=== PATIENT | female | born 1930 | race African-American/Black ===

== ENCOUNTER → 2016-11-13 | Outpatient (CLI) | payer MEDICARE, OTHER ==
--- NOTE | 2016-11-13 14:58 | RAD ---
Right knee, 3 views, 11/13/2016: History: Knee pain AP standing views of both knees as well as lateral and tangential patellar views of the right knee were obtained. There is moderate patchy bony demineralization. There is mild narrowing of the medial compartment of the right knee joint. Bilateral chondrocalcinosis is present. There is mild marginal spurring at the right knee joint and moderate spurring at the patellofemoral articulation. No acute fracture or dislocation is identified. There appears to be small joint effusion. IMPRESSION: 1. Demineralization. 2. Mild to moderate degenerative change at the right knee joint with chondrocalcinosis. 3. Right knee joint effusion
== END | disposition home or self-care (01) ==
LOC: DXRADRC 14:36
PROVIDERS: ATTEND Orthopaedic Surgery Sports Medicine
DX: M17.11 Unilateral primary osteoarthritis, right knee (principal); M11.261 Other chondrocalcinosis, right knee; M81.8 Other osteoporosis without current pathological fracture
CPT/HCPCS: 73562

== ENCOUNTER 2018-09-20 10:50 | Emergency (ER) | payer MEDICARE, OTHER ==
[~2018-09-20] VITALS: Ht 152.4 cm; Wt 72.6 kg
--- NOTE | 2018-09-20 11:15 | PHYS DOC ---
Adult General Chief Complaint Chief Complaint: LOWER EXT PAIN HPI HPI Patient is a 88 year old female who presents with complaining of injury to right lower extremity. Patient states she had an accidental fall from 6 stairs at home last night without loss of consciousness or head injury. Patient complaining of pain in right ankle that getting worse with bearing weight and rated her pain 4/10 without activity. Patient also complaining of right calf pain since this morning without injury to her. Patient is other injuries or focal neuro deficit. Review of Systems Review of Systems Constitutional: Denies fever or chills [] Eyes: Denies change in visual acuity, redness, or eye pain [] HENT: Denies nasal congestion or sore throat [] Respiratory: Denies cough or shortness of breath [] Cardiovascular: No additional information not addressed in HPI [] GI: Denies abdominal pain, nausea, vomiting, bloody stools or diarrhea [] : Denies dysuria or hematuria [] Musculoskeletal: Denies back pain, reports joint pain [] Integument: Denies rash or skin lesions [] Neurologic: Denies headache, focal weakness or sensory changes [] Endocrine: Denies polyuria or polydipsia [] All other systems were reviewed and found to be within normal limits, except as documented in this note. Physical Exam Physical Exam Constitutional: Well developed, well nourished, mild distress, non-toxic appearance. [] HENT: Normocephalic, atraumatic Eyes: PERRLA, EOMI, conjunctiva normal, no discharge. [] Neck: Normal range of motion, no tenderness, supple, no stridor. [] Cardiovascular:Heart rate regular rhythm, no murmur [] Lungs & Thorax: Bilateral breath sounds clear to auscultation [] Extremities: Right lower extremity with edema and ankles with painful range of motion, no focal neuro deficit or tenderness, right calf without tenderness or edema or positive Homans sign Neurologic: Alert and oriented X 3, normal motor function, normal sensory function, no focal deficits noted. [] Psychologic: Affect normal, judgement normal, mood normal. [] EKG EKG [] Radiology/Procedures Radiology/Procedures [address] [address] IMAGING REPORT Signed PATIENT: MIRIAM SAUCEDO ACCOUNT: [id number] : 1930 LOCATION: ER AGE: 88 SEX: F EXAM STATUS: REG ER ORD. PHYSICIAN: CHARLIE SOSA MD REASON: fall PROCEDURE: ANKLE RIGHT 3V Right ankle, 3 views, 09/20/2018: HISTORY: Fall, pain There is moderate diffuse soft tissue swelling. No acute fracture or dislocation is identified. Arterial calcifications are present. IMPRESSION: No acute bony abnormality is detected. Electronically signed by: Carlo Noel MD (09/20/2018 12:34 PM) [facility] DICTATED AND SIGNED BY: CARLO NOEL MD DATE: 09/20/18 1231 CC: CHARLIE SOSA MD; KAHLIL JEAN MD ~ [place] [address] IMAGING REPORT Signed PATIENT: IMRIAM SAUCEDO ACCOUNT: [id number] : 1930 LOCATION: ER AGE: 88 SEX: F EXAM STATUS: PRE ER ORD. PHYSICIAN: CHARLIE SOSA MD REASON: right calf pain since this morning PROCEDURE: VENOUS LOWER EXTREMITY RIGHT EXAM: Right lower extremity venous Doppler sonogram. HISTORY: Pain and swelling. TECHNIQUE: Huggins scale and color Doppler sonographic evaluation of the right lower extremity veins with spectral waveform analysis was performed. FINDINGS: There is normal color flow, normal compressibility and there are normal spectral waveforms in the common femoral, superficial femoral, popliteal, posterior tibial and greater saphenous veins. IMPRESSION: No Doppler evidence of lower extremity deep venous thrombosis. Electronically signed by: Ivelisse Thomas MD (09/20/2018 11:53 AM) [place] [id number] DICTATED AND SIGNED BY: IVELISSE THOMAS MD DATE: 09/20/18 115 CC: CHARLIE SOSA MD; KAHLIL JEAN MD ~ Course & Med Decision Making Course & Med Decision Making Pertinent Imaging studies reviewed. (See chart for details) Evaluation of patient in ER showed 88-year-old patient with complaining of a fall last night and pain in right ankle and right foot and right calf. Patient had moderate edema of right foot and ankle without focal tenderness or neuro deficit. Extensive did not show fracture. Patient also complaining of right calf pain with negative venous Doppler for DVT. Patient didn't want to have pain medication in ER and treated with Xanax and felt better. Patient doesn't want to have pain medication for home. Ankle gel splint was applied and patient ambulated well. Patient was advised to continue Tylenol and apply ice at [place] follow-up with her primary care physician. Dragon Disclaimer Dragon Disclaimer This electronic medical record was generated, in whole or in part, using a voice recognition dictation system. Departure Departure: Impression: Primary Impression: Right ankle sprain Additional Impressions: Fall down stairs Right calf pain Disposition: HOME, SELF-CARE Condition: IMPROVED Referrals: KAHLIL JEAN MD (PCP) Patient Instructions: Ankle Sprain Additional Instructions: Apply ice on the affected area Follow-up with your primary care physician in 2-3 days Return to ER if not getting better Scripts Cyclobenzaprine Hcl (CYCLOBENZAPRINE HCL) 5 Mg Tablet 1 TAB PO TID for muscle pain, #20 TAB Prov: CHARLIE SOSA MD 09/20/18 Problem Qualifiers Primary Impression: Right ankle sprain Encounter type: initial encounter Involved ligament of ankle: unspecified ligament Qualified Codes: S93.401A - Sprain of unspecified ligament of right ankle, initial encounter Additional Impressions: Fall down stairs Encounter type: initial encounter Qualified Codes: W10.8XXA - Fall (on) ( from) other stairs and steps, initial encounter CHARLIE SOSA MD Sep 20, 2018 11:15
--- NOTE | 2018-09-20 11:57 | RAD ---
EXAM: Right lower extremity venous Doppler sonogram. HISTORY: Pain and swelling. TECHNIQUE: Huggins scale and color Doppler sonographic evaluation of the right lower extremity veins with spectral waveform analysis was performed. FINDINGS: There is normal color flow, normal compressibility and there are normal spectral waveforms in the common femoral, superficial femoral, popliteal, posterior tibial and greater saphenous veins. IMPRESSION: No Doppler evidence of lower extremity deep venous thrombosis. Electronically signed by: Ivelisse Mcgee MD (09/20/2018 11:53 AM) [place] [id number]
[2018-09-20] MEDS ORDERED: CYCLOBENZAPRINE 10 MG TABLET. PO ONE (12:30)
--- NOTE | 2018-09-20 12:37 | RAD ---
Right ankle, 3 views, 09/20/2018: HISTORY: Fall, pain There is moderate diffuse soft tissue swelling. No acute fracture or dislocation is identified. Arterial calcifications are present. IMPRESSION: No acute bony abnormality is detected. Electronically signed by: Carlo Noel MD (09/20/2018 12:34 PM) [facility]
[2018-09-20] MEDS ORDERED: CYCL5TAB PO (12:52)
[2018-09-20 13:00] VITALS: BP 137/69
== END 2018-09-20 13:10 | disposition home or self-care (01) ==
LOC: ER 10:50
DX: S93.401A Sprain of unspecified ligament of right ankle, initial encounter (principal); M79.661 Pain in right lower leg; W10.8XXA Fall (on) (from) other stairs and steps, initial encounter; Y93.89 Activity, other specified; Y92.89 Other specified places as the place of occurrence of the external cause; Y99.8 Other external cause status
CPT/HCPCS: 29125; 73610; 93971; 99284-25

== ENCOUNTER 2018-10-21 23:10 | Emergency (ER) | payer MEDICARE, OTHER ==
[~2018-10-21] VITALS: Ht 152.4 cm; Wt 72.6 kg
[2018-10-21 23:10] VITALS: BP 145/57
[~2018-10-21 23:10] MED LIST: CYCL5TAB PO
--- NOTE | 2018-10-21 23:24 | PHYS DOC ---
Past History Past Medical History: Diabetes, Renal Failure Past Surgical History: Hysterectomy Alcohol Use: None Drug Use: None Adult General Chief Complaint Chief Complaint: FOOT INJURY PAIN [facility] HPI Patient is an 88-year-old female who presents with complaint of pain to her left small toe after stepping in this evening. Patient states that she put a bunch of Band-Aids on it thinking that it would help with the pain but states that it has not. Patient states that she doesn't know if it might be broken or not. She denies any other injuries. Review of Systems Review of Systems Constitutional: Denies fever or chills [] Respiratory: Denies cough or shortness of breath [] Cardiovascular: No additional information not addressed in HPI [] Musculoskeletal: Positive left small toe pain [] Integument: Denies rash or skin lesions [] Allergies Allergies Allergies Coded Allergies Type Severity Reaction Last Updated Verified No Known Drug Allergies 09/20/18 No Physical Exam Physical Exam Constitutional: Well developed, well nourished, no acute distress, non-toxic appearance. [] Cardiovascular:Heart rate regular rhythm, no murmur [] Lungs & Thorax: Bilateral breath sounds clear to auscultation [] Extremities: Evaluation of the left small toe demonstrates tenderness to palpation around the metatarsophalangeal joint. [] EKG EKG [] Radiology/Procedures Radiology/Procedures [] Course & Med Decision Making Course & Med Decision Making Pertinent Labs and Imaging studies reviewed. (See chart for details) [] Dragon Disclaimer Dragon Disclaimer This electronic medical record was generated, in whole or in part, using a voice recognition dictation system. Departure Departure: Impression: Primary Impression: Toe contusion Disposition: 01 HOME, SELF-CARE Condition: STABLE Referrals: KAHLIL JEAN MD (PCP) Patient Instructions: Varun Taping of Toes, Contusion Scripts Tramadol Hcl (TRAMADOL HCL) 50 Mg Tablet 50 MG PO PRN Q6HRS PRN for PAIN, #10 TAB Prov: LOPEZ KILLIAN Jr. DO 10/21/18 Problem Qualifiers Primary Impression: Toe contusion Encounter type: initial encounter Toe: lesser toe Damage to nail status: without damage Laterality: left Qualified Codes: S90.122A - Contusion of left lesser toe(s) without damage to nail, initial encounter LOPEZ KILLIAN Jr. DO Oct 21, 2018 23:23
[2018-10-21] MEDS ORDERED: TRAM50TA PO (23:57)
[2018-10-22] MEDS ORDERED: START PACK - traMADol 1 STARTPACK TABLET PO ONE
--- NOTE | 2018-10-22 08:02 | RAD ---
Examination: TOES LEFT History: Stubbed small toe on chair tonight, severe pain Comparison/Correlation: None Findings: Total 3 images of the left fifth digit were obtained. Degenerative narrowing of interphalangeal joints identified. Small bony density is present lateral to the fifth digit proximal phalanx at the distal aspect but may represent accessory ossicle. No definite displaced fracture or bony destruction. No dislocation. Fifth metatarsal bone is unremarkable. Impression: No definite fracture. Electronically signed by: Nagi Danielle MD (10/22/2018 7:59 AM) [facility]
== END 2018-10-22 00:08 | disposition home or self-care (01) ==
LOC: ER 23:10
DX: S90.122A Contusion of left lesser toe(s) without damage to nail, initial encounter (principal); E11.9 Type 2 diabetes mellitus without complications; W22.8XXA Striking against or struck by other objects, initial encounter; Y93.89 Activity, other specified; Y92.89 Other specified places as the place of occurrence of the external cause; Y99.8 Other external cause status
CPT/HCPCS: 73660; 99283

== ENCOUNTER → 2019-10-06 | Outpatient (CLI) | payer MEDICARE, OTHER ==
[~2019-10-06] MED LIST changes: +TRAM50TA PO
--- NOTE | 2019-10-06 12:26 | RAD ---
Examination: CT HEAD AND MAXILLOFACIAL WO History: Nausea Comparison/Correlation: None Findings: Axial images of the head and maxillofacial structures were obtained. Sagittal and coronal reformatted images of the maxillofacial structures were provided [id number] atrophy is present. Chronic ischemic changes or white matter is present. No intracranial hemorrhage, midline shift, or mass effect. The region of the cribriform plate is unremarkable. The visualized paranasal sinuses are unremarkable with no definite opacification. No fluid levels. I see sinus ostia are patent. Small osteomas involving the right ethmoid air cells. Orbits are unremarkable. Atlantoaxial joint degenerative remodeling is present. Impression: No suspicious intracranial process. Paranasal sinuses are clear with no evidence of sinusitis. PQRS Compliance Statement: One or more of the following individualized dose reduction techniques were utilized for this examination: 1. Automated exposure control 2. Adjustment of the mA and/or kV according to patient size 3. Use of iterative reconstruction technique Electronically signed by: Nagi Danielle MD (10/06/2019 12:22 PM) [id number]
== END | disposition home or self-care (01) ==
LOC: CT 11:09
PROVIDERS: ATTEND Family Medicine
DX: D16.4 Benign neoplasm of bones of skull and face (principal); G31.9 Degenerative disease of nervous system, unspecified
CPT/HCPCS: 70450; 70486

== ENCOUNTER → 2020-10-19 | Outpatient (CLI) | payer MEDICARE, OTHER ==
[2020-10-19 11:20] LABS: ALBUMIN 3.2 g/dL (3.4-5.0); CALCIUM 9.1 mg/dL (8.5-10.1); CREATININE 1.4 mg/dL (0.6-1.0); GFR 42.9; PHOSPHORUS 3.7 mg/dL (2.6-4.7); POTASSIUM 3.9 mmol/L (3.5-5.1)
== END ==
LOC: LAB 08:55
PROVIDERS: ATTEND Internal Medicine Nephrology
DX: E11.22 Type 2 diabetes mellitus with diabetic chronic kidney disease (principal); N18.30 Chronic kidney disease, stage 3 unspecified; N27.0 Small kidney, unilateral; R80.9 Proteinuria, unspecified; E21.3 Hyperparathyroidism, unspecified; Z68.28 Body mass index [BMI] 28.0-28.9, adult
CPT/HCPCS: 36415; 80069